=== PATIENT | male | born 1970 | race African-American/Black ===

== ENCOUNTER 2017-05-19 19:24 | Emergency (ER) | payer MEDICARE, OTHER ==
[2017-05-19 20:04] VITALS: BP 146/95; PULSE 65; RESP 18; TEMP 98
--- NOTE | 2017-05-19 20:29 | XR ---
EXAMINATION TYPE: XR hand complete LT DATE OF EXAM: 05/19/2017 COMPARISON: NONE HISTORY: Pain TECHNIQUE: 3 views FINDINGS: I see no fracture nor dislocation. Metacarpals are intact. There are no erosions. IMPRESSION: Negative left hand exam.
--- NOTE | 2017-05-19 21:01 | ED ---
General Adult HPI - General Chief complaint: Extremity Injury, Upper Stated complaint: left hand swelling Time Seen by Provider: 05/19/17 20:52 Source: patient, RN notes reviewed Mode of arrival: ambulatory Limitations: no limitations - History of Present Illness Initial comments: 47-year-old male presents to the emergency department with a chief complaint of left hand pain. Patient was boxing and continues to have pain to the left hand. He states that he was wearing gloves. He states that there was no other injury. He states it hurts at the knuckle of the third and fourth finger. There is been no other symptoms at this time. He otherwise is feeling well. Patient denies any recent fever, chills, shortness of breath, chest pain, back pain, abdominal pain, nausea vomiting, numbness or tingling, dysuria or hematuria, constipation or diarrhea, headaches or visual changes, or any other current symptoms. - Related Data Allergies Allergy/AdvReac Type Severity Reaction Status Date / Time No Known Allergies Allergy Verified 05/19/17 20:04 Review of Systems ROS Statement: Those systems with pertinent positive or pertinent negative responses have been documented in the HPI. ROS Other: All systems not noted in ROS Statement are negative. Past Medical History Past Medical History: Hypertension History of Any Multi-Drug Resistant Organisms: None Reported Past Surgical History: Cholecystectomy Past Psychological History: No Psychological Hx Reported Smoking Status: Current every day smoker Past Alcohol Use History: None Reported Past Drug Use History: Marijuana General Exam - General Exam Comments Initial Comments: General: The patient is awake and alert, in no distress, and does not appear acutely ill. Neck: The neck is supple, there is no tenderness. Cardiovascular: There is a regular rate and rhythm. No murmur, rub or gallop is appreciated. Respiratory: Lungs are clear to auscultation, respirations are non-labored, breath sounds are equal. No wheezes, stridor, rales, or rhonchi. Musculoskeletal: Sensation intact with 2+ pulses throughout the left upper extremity. Patient has some tenderness patient along the third and fourth knuckle. No deformity no weakness. Full range of motion with 5 out of 5 muscle strength testing. Neurological: CN II-XII intact, There are no obvious motor or sensory deficits. Coordination appears grossly intact. Speech is normal. Skin: Skin is warm and dry and no rashes or lesions are noted. Psychiatric: Normal mood and affect. Limitations: no limitations Course Vital Signs 05/19/17 20:01 Temperature 98.0 F Pulse Rate 65 Respiratory 18 Rate Blood Pressure 146/95 O2 Sat by Pulse 100 Oximetry Medical Decision Making - Medical Decision Making 47-year-old male presents to the emergency department with a chief complaint of left hand contusion. X-rays are reviewed and negative. We did discuss Motrin Tylenol for pain we discussed ice. He was offered bee sting. He states he can do them at home. We discussed return for hours all questions. Patient family stated they understood and management this plan. They will be discharged. - Radiology Data Radiology results: report reviewed, image reviewed Disposition Clinical Impression: Contusion of left hand Disposition: HOME SELF-CARE Condition: Stable Instructions: Contusion in Adults (ED) Additional Instructions: Please use medication as discussed. Please follow up with family doctor if symptoms have not improved over the next two days. Please return to the emergency room if your symptoms increase or worsen or for any other concerns. Referrals: Reji Najera MD [REFERRING] - 1-2 days Time of Disposition: 21:01
== END 2017-05-19 21:08 | disposition home or self-care (01) ==
LOC: EC 19:24
DX: S60.222A Contusion of left hand, initial encounter (principal); F17.200 Nicotine dependence, unspecified, uncomplicated; X58.XXXA Exposure to other specified factors, initial encounter; Y93.71 Activity, boxing
CPT/HCPCS: 99283

== ENCOUNTER 2018-10-12 10:28 | Emergency (ER) | payer MEDICARE, OTHER ==
[2018-10-12 10:33] VITALS: BP 175/105; PULSE 78; RESP 18; TEMP 98.4
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
--- NOTE | 2018-10-12 11:22 | XR ---
EXAM TYPE: LUMBAR SPINE X RAY SERIES COMPARISON: NONE HISTORY: Low back pain TECHNIQUE: 4 views are submitted. FINDINGS: Alignment is anatomic. The pedicles are intact. The transverse processes are intact. There is no s pondylolysis or spondylolisthesis. Surgical clips in the right upper quadrant. Multilevel hypertroph ic changes are seen. IMPRESSION: 1. Multilevel hypertrophic changes consider follow-up MRI..
[2018-10-12] MEDS ORDERED: ACET/COD 300 MG/30 MG STARTER PACK 6 TAB BTL PO STA (12:15)
== END 2018-10-12 12:24 | disposition home or self-care (01) ==
LOC: EC 10:28
DX: M54.5 Low back pain (principal); I10 Essential (primary) hypertension; F17.200 Nicotine dependence, unspecified, uncomplicated; Z79.899 Other long term (current) drug therapy
CPT/HCPCS: 72110; 99283

== ENCOUNTER → 2022-01-16 | Outpatient (CLI) | payer MEDICARE, OTHER ==
--- NOTE | 2022-01-17 07:42 | US ---
EXAMINATION TYPE: US kidneys/renal and bladder DATE OF EXAM: 01/16/2022 COMPARISON: NONE CLINICAL HISTORY: N18.5 CHRONIC RENAL DISEASE. EXAM MEASUREMENTS: Right Kidney: 9.2 x 4.4 x 4.4 cm Left Kidney: 9.1 x 4.5 x 5.1 cm Patient of large body habitus Right Kidney: echogenic kidney without any mass or hydronephrosis visualized Left Kidney: No hydronephrosis, superior pole cyst measuring 1.2 x 1.1 x 1.0cm Bladder: not fully distended IMPRESSION: 1. Left renal cyst
== END | disposition home or self-care (01) ==
LOC: RADUSWWP 16:27
PROVIDERS: ATTEND Internal Medicine Nephrology
DX: N28.1 Cyst of kidney, acquired (principal); N18.5 Chronic kidney disease, stage 5
CPT/HCPCS: 76770

== ENCOUNTER 2024-03-30 15:46 | Inpatient (IN) | payer MEDICARE, OTHER ==
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
[2024-03-30 17:56] LABS: INR 0.9 (<1.2); Partial Thromboplastin Time 23.1 sec (22.0-30.0)
[2024-03-30 17:57] LABS: Anisocytosis Slight; Basophils % (A) 0 %; Eosinophils # (A) 0.1 k/uL (0-0.7); Eosinophils % (A) 1 %; HGB 11.9 gm/dL (13.0-17.5); Hypochromasia Slight; Lymphocytes # (A) 0.8 k/uL (1.0-4.8); Lymphocytes % (A) 8 %; MCH 29.4 pg (25.0-35.0); MCHC 32.1 g/dL (31.0-37.0); MCV 91.7 fL (80.0-100.0); Mean Platelet Volume 7.7; Monocytes # (A) 0.5 k/uL (0-1.0); Monocytes % (A) 5 %; Neutrophils # (A) 8.5 k/uL (1.3-7.7); Neutrophils % (A) 84 %; Platelet Count 151 k/uL (150-450); RBC 4.03 m/uL (4.30-5.90); RDW 16.1 % (11.5-15.5); WBC 10.1 k/uL (3.8-10.6)
[2024-03-30 18:04] LABS: ALT 11 U/L (4-49); AST 21 U/L (17-59); African American GFR (CKD) 9 (>60 ml/min/1.73 sqM); Alkaline Phosphatase 127 U/L (38-126); Anion Gap 19 mmol/L; Blood Urea Nitrogen 48 mg/dL (9-20); Calcium 9.4 mg/dL (8.4-10.2); Carbon Dioxide 12 mmol/L (22-30); Chloride 108 mmol/L (98-107); Glucose 87 mg/dL (74-99); Non-African American GFR(CKD) 8 (>60 ml/min/1.73 sqM); Potassium 4.4 mmol/L (3.5-5.1); Sodium 139 mmol/L (137-145); Total Protein 7.9 g/dL (6.3-8.2)
--- NOTE | 2024-03-30 18:04 | XR ---
EXAMINATION TYPE: XR chest 2V DATE OF EXAM: 03/30/2024 5:50 PM COMPARISON: None CLINICAL INDICATION: Male, 53 years old with history of dizziness; TECHNIQUE: XR chest 2V Frontal and lateral views of the chest. FINDINGS: Lungs/Pleura: There is no evidence of pleural effusion, focal consolidation, or pneumothorax. Pulmonary vascularity: Unremarkable. Heart/mediastinum: Cardiomediastinal silhouette is unremarkable. Musculoskeletal: No acute osseous pathology. IMPRESSION: No acute cardiopulmonary disease/process. [facility], , 03/30/2024 6:02 PM
--- NOTE | 2024-03-30 18:18 | CT ---
EXAMINATION TYPE: CT brain wo con DATE OF EXAM: 03/30/2024 6:01 PM COMPARISON: None. CLINICAL INDICATION: Male, 53 years old with history of headache/dizzy/hypertensive, Headache/dizzy/h ypertensive. TECHNIQUE: Brain: Axial CT images of the brain were obtained with coronal and sagittal reformats created and rev iewed. Contrast used: None. Oral contrast used: None. CT DLP: 1154.4 mGycm, Automated exposure control for dose reduction was used. FINDINGS: Brain: Extra-axial spaces: No abnormal extra-axial fluid collections. Ventricular system: Within normal limits Cerebral parenchyma: No acute intraparenchymal hemorrhage or mass effect. The garza-white junction is well differentiated. Cerebellum: Unremarkable. Mass effect: No evidence of midline shift. Intracranial vasculature: unremarkable Soft tissues: Normal. Calvarium/osseous structures: No depressed skull fracture. Paranasal sinuses and mastoid air cells: Moderate paranasal sinus disease of because of thickening/re tention cyst. Visualized orbits: Orbital contents are intact. IMPRESSION: No acute intracranial process. [facility], , 03/30/2024 6:15 PM
[2024-03-30] MEDS: LABETALOL 5 MG/ML VIAL MDV IVP STA (18:46)
[2024-03-30] MEDS: cloNIDine 0.1 MG/24HR PATCH TRANSDERM SCH (18:56)
[2024-03-30] MEDS ORDERED: NALOXONE 0.4 MG/ML 1 ML VIAL IV PRN (19:08)
[2024-03-30] MEDS ORDERED: ONDANSETRON 4 MG/2 ML VIAL IVP PRN (19:08)
[2024-03-30] MEDS: SODIUM CHLORIDE 0.9% 1,000 ML IV SCH (20:28)
--- NOTE | 2024-03-30 21:38 | P.HPIM ---
History of Present Illness H&P Date: 03/30/24 Patient is a 53-year-old male with history of uncontrolled hypertension and chronic kidney disease comes to the ER with complaint of dizziness and headaches since 4 to 5 days. Patient states that he has been feeling dizzy constantly since Friday which is worse with changes in position. It has been associated with unsteady gait and had to 2 episodes fall. He denies any injury to the head. Denies any loss of consciousness. Patient has been also experiencing diffuse headache which is worse in the occipital area associated with blurry vision. Patient states that when he measured his blood pressure at home today his BP was more than approximately 230/150 which prompted him to come to the ER for further evaluation. Patient has previously been diagnosed with hypertension and was on 5-7 different types of antihypertensive medications. He has not been taking hypertensive medications for the past 1 year because he "did not feel the need to take it". Patient is also following a sustainability officer at [facility] in [facility] for chronic kidney disease and according to the p atient he was supposed to be having a peritoneal dialysis. Patient is unable to recall the name of the sustainability officer. Patient denies history of CAD and CVA. Patient is not on any blood thinner. No recent travel. Patient denies shortness of breath, chest pain, abdominal pain, numbness or weakness or tingling in upper and lower extremities. Laboratory data: WBC 10.1, hemoglobin 11.9, hematocrit 37.0, platelet count 151, PT 10.0, INR 0.9, APTT 23.1, sodium 139, potassium 4.4, chloride 108, bicarb 12, BUN 48, creatinine 7.31, EGFR 9, AST 21, ALT 11, ALP 127, troponin I 0.038 Images: Chest x-ray interpreted independently shows no acute cardiopulmonary process Brain CT shows no acute intraparenchymal hemorrhage or mass effect. No acute intracranial process EKG intracranial bleed shows Vitals: BP 236/149 with MAP at 178, Tmax 98.4 Fahrenheit, heart rate 83, oxygen saturation 98% on room air Review of systems: Pertinent positives and negatives as discussed in HPI, a complete review of systems was performed and all other systems are negative. Social history: Tobacco: Half a cigarette every day Alcohol: None Recreational drugs: Denies use of recreational Family History: Hypertension and mother and father Physical examination: Vital signs reviewed General: non toxic, no distress, appears at stated age, overweight Derm: no unusual rashes/lesions, warm, tattoos in the face and upper and lower extremities Head: atraumatic, normocephalic, symmetric, no carotid bruit Eyes: EOMI, anicteric sclera, pupils equal round reactive to light ENT: Nose and ears atraumatic Neck: No cervical lymphadenopathy, trachea midline, supple Mouth: no lip lesion, mucus membranes moist Cardiovascular: S1S2 reg, no murmur, positive dorsalis pedis pulse bilateral, no edema, peripheral radial pulses are brisk and equal Lungs: CTA bilateral, no rhonchi, no rales, no accessory muscle use Abdominal: soft, nontender to palpation, no guarding Ext: muscle strength 5 out of 5 in all 4 extremities grossly, no gross muscle atrophy, no contractures, Neuro: CN II-XI grossly intact, no gross focal neuro deficits, pronator drift negative Psych: Alert, oriented, appropriate affect Assessment/Plan: Patient is a 53-year-old male with uncontrolled hypertension not currently on medication for over a year now and chronic kidney disease non oliguric comes to the ER with complaint of hypertension crisis, dizziness and headaches since 4 to 5 days. Case was discussed with the Emergency Room provider and decision was made to admit the patient for hypertensive emergency #Hypertensive emergency #Suspected posterior reversible encephalopathy syndrome Blood pressure 236/149 with a MAP of 178 Patient has been experiencing dizziness and headache mostly on the occipital area associated with blurry vision Troponin I 0.038 elevated , continue to trend , denies chest pain Patient has received clonidine 0.1 mg/24-hour patch as well as labetalol 20 mg IVP once in ED Blood pressure continues to be in the range of hypertensive emergency Initiate transfer to ICU Order nicardipine drip starting at 5 mg/h Continue with drip titration as needed with a goal of lowering the MAP by 25% in the first hour which is apprx 135 , then Target BP around or slightly below 180/120 which should be maintained till morning over the next 12 hours Continue with cardiac telemetry Consider MRI of the brain to rule out posterior reversible encephalopathy syndrome # GOLD on CKD , unknown baseline , non oliguric Patient is already established sustainability officer at [facility] in [place] elevated renal function BUN 48, creatinine 7.31, EGFR 9 Consult nephrology monitor urine output closely #Type II [place] secondary to hypertensive emergency and CKD Continue to trend troponin, although patient is not complaining of any chest pain and low suspicious for ACS Continue with cardiac telemetry Consult cardiology #Normocytic anemia Hemoglobin 11.9, MCV 91.7 Continue monitor CBC #High anion gap metabolic acidosis secondary to renal failure Order lactic acid Sodium 139, potassium 4.4, chloride 108, bicarb 12, anion gap 19, #Elevated ALP ALP 127 Continue monitor CMP DVT prophylaxis: None indicated based on low Gomez Prediction Score for Risk of VTE , SCDs, will avoid chemical DVT PPX overnight due to uncontrolled hypertension , consider initiating chemical DVT PPX once his BP under control GI prophylaxis: IV Protonix 40 mg daily F: IV normal saline at 75 cc per hour E: Replete as needed N: Heart healthy diet A: Patient ambulatory at baseline The patient is admitted with an anticipated more than than 2 midnight stay for evaluation of hypertensive emergency CODE STATUS: Full code Discussed with: Patient Anticipated discharge place: Pending clinical course Dictation was produced using [employer] dictation software. Please excuse any grammatical, word or spelling errors. I have seen and evaluated the patient today. I Discussed the case with the resident and agree with the resident's findings I edited the assessment and plan as necessary as documented in the resident's note. Past Medical History Past Medical History: Hypertension History of Any Multi-Drug Resistant Organisms: None Reported Past Surgical History: Cholecystectomy Past Psychological History: No Psychological Hx Reported Smoking Status: Current every day smoker Past Alcohol Use History: None Reported Past Drug Use History: Marijuana Medications and Allergies Home Medications Medication Instructions Recorded Confirmed Type No Known Home Medications 03/30/24 03/30/24 History Allergies Allergy/AdvReac Type Severity Reaction Status Date / Time No Known Allergies Allergy Verified 03/30/24 18:41 Physical Exam Vitals: Vital Signs Temp Pulse Resp BP Pulse Ox 03/30/24 21:00 72 18 204/137 100 03/30/24 20:28 83 18 236/149 98 03/30/24 18:44 93 18 233/151 97 03/30/24 16:25 98.4 F 97 18 236/147 99 Intake and Output 03/30/24 03/30/24 03/30/24 06:59 14:59 22:59 Other: Weight 93.44 kg Results CBC & Chem 7: 03/30/24 17:38 03/30/24 17:38 Labs: Abnormal Lab Results - Last 24 Hours (Table) 03/30/24 03/30/24 03/30/24 Range/Units 17:38 17:38 17:38 RBC 4.03 L (4.30-5.90) m/uL Hgb 11.9 L (13.0-17.5) gm/dL Hct 37.0 L (39.0-53.0) % RDW 16.1 H (11.5-15.5) % Neutrophils # 8.5 H (1.3-7.7) k/uL Lymphocytes # 0.8 L (1.0-4.8) k/uL Chloride 108 H (98-107) mmol/L Carbon Dioxide 12 L (22-30) mmol/L BUN 48 H (9-20) mg/dL Creatinine 7.31 H* (0.66-1.25) mg/dL Alkaline Phosphatase 127 H (38-126) U/L Troponin I 0.038 H* (0.000-0.034) ng/mL
[2024-03-30] MEDS: niCARdipine 20 MG in SODIUM CHLORIDE 0.9% 192 ML IV SCH (21:40)
[2024-03-30 22:07] LABS: Glucose,Whole Blood 157 mg/dL (70-110)
[2024-03-30] MEDS: CLEVIDIPINE BUTYRATE 25 MG in EMPTY BAG 1 BAG IV SCH (23:48)
[2024-03-30] MEDS: MORPHINE SULFATE 4 MG/ML SYRINGE IV PRN (23:49)
[2024-03-31 00:45] LABS: Anisocytosis Slight; Basophils % (A) 0 %; Eosinophils # (A) 0.1 k/uL (0-0.7); Eosinophils % (A) 1 %; HGB 11.2 gm/dL (13.0-17.5); Hypochromasia Slight; Lymphocytes # (A) 0.9 k/uL (1.0-4.8); Lymphocytes % (A) 8 %; MCH 29.4 pg (25.0-35.0); MCV 92.1 fL (80.0-100.0); Mean Platelet Volume 7.7; Monocytes # (A) 0.6 k/uL (0-1.0); Monocytes % (A) 6 %; Neutrophils # (A) 8.8 k/uL (1.3-7.7); Neutrophils % (A) 84 %; Platelet Count 147 k/uL (150-450); RDW 16.3 % (11.5-15.5); WBC 10.5 k/uL (3.8-10.6)
[2024-03-31 01:07] LABS: ALT 11 U/L (4-49); AST 18 U/L (17-59); African American GFR (CKD) 9 (>60 ml/min/1.73 sqM); Albumin 4.6 g/dL (3.5-5.0); Alkaline Phosphatase 116 U/L (38-126); Anion Gap 14 mmol/L; Blood Urea Nitrogen 48 mg/dL (9-20); Carbon Dioxide 17 mmol/L (22-30); Chloride 105 mmol/L (98-107); Glucose 160 mg/dL (74-99); Magnesium 2.1 mg/dL (1.6-2.3); Non-African American GFR(CKD) 7 (>60 ml/min/1.73 sqM); Phosphorus 3.5 mg/dL (2.5-4.5); Potassium 3.4 mmol/L (3.5-5.1); Sodium 136 mmol/L (137-145); Total Bilirubin 0.7 mg/dL (0.2-1.3); Total Protein 7.4 g/dL (6.3-8.2)
[2024-03-31] MEDS: LABETALOL 5 MG/ML VIAL MDV IVP STA (02:21)
--- NOTE | 2024-03-31 04:04 | P.CNPUL ---
History of Present Illness Consult date: 03/31/24 Requesting physician: Tomasz Orosco Reason for consult: other (Hypertensive emergency) Chief complaint: Headaches, vision changes History of present illness: Patient is a 53-year-old -Cambod[place] male with past medical history significant for hypertension and renal disease. Patient is originally from [place]. History remarkable for high blood pressure, was previously on multiple blood pressure medications, but has not taken anything in the last year. He states he does have a primary care to provider and emergency preparedness manager but was unable to recall their names. Presents emergency department yesterday afternoon with a chief complaint of severe diffuse headache, diffuse and nonlocalized, dizziness, and blurred vision. Symptoms have persisted over the last week. He was noted to be severely hypertensive in the emergency department with a blood pressure of 220 over 123 mmHg. On the emergency room, given labetalol 20 mg IV push once, clonidine patch, and then started on a Cardene infusion. Initial lab work concerning for renal failure. Patient states that he does have a kidney doctor. He was going to be started on peritoneal dialysis, but never followed up. CBC: WBC count 10.5, hemoglobin 11.2, hematocrit 35, platelets 147. CMP: Sodium 136, potassium 3.4, chloride 105, serum bicarb 17, anion gap 14, BUN 48, creatinine 7.59, glucose 160. LFTs unremarkable. Magnesium 2.1. Serial troponins elevated at 0.038, 0.038, and 0.046 in the setting of renal failure and severe hypertension. Patient is currently being evaluated in the intensive care unit. Cardene is currently infusing at 5 mg/h. He remains hypertensive with a current blood pressure of 192/113 mmHg. He is lying in bed, appears comfortable. He denies any chest pain, shortness of breath, orthopnea, palpitations, lower extremity edema. Chest x-ray does not show any acute cardiopulmonary process. Continues to have headache, but slightly improved. No mental status changes. Brain CT without contrast does not show any acute intracranial process. Denies recreational drug use other than marijuana. He states that he is leaving in the morning. Review of Systems Constitutional: Denies chills, Denies chronic headaches, Denies fever, Denies weight gain, Denies weight loss Ears, nose, mouth and throat: Reports headache, Denies sinus pain, Denies sinus pressure Cardiovascular: Reports as per HPI Respiratory: Denies cough, Denies dyspnea, Denies pain, Denies sleep apnea Gastrointestinal: Denies abdominal pain, Denies diarrhea, Denies nausea, Denies vomiting Genitourinary: Denies dysuria, Denies hematuria Musculoskeletal: Denies arm numbness/tingling, Denies leg numbness/tingling Integumentary: Denies rash Neurological: Reports headaches, Reports lack of coordination, Reports visual changes, Denies change in speech, Denies confusion, Denies double vision, Denies head injury, Denies hearing difficulties, Denies loss of vision, Denies motor disturbance, Denies numbness, Denies paralysis, Denies paresthesias, Denies seizures, Denies syncope, Denies tingling, Denies weakness Psychiatric: Denies anxiety, Denies depression Past Medical History Past Medical History: Hypertension History of Any Multi-Drug Resistant Organisms: None Reported Past Surgical History: Cholecystectomy Past Psychological History: No Psychological Hx Reported Smoking Status: Current every day smoker Past Alcohol Use History: None Reported Past Drug Use History: Marijuana Medications and Allergies Home Medications Medication Instructions Recorded Confirmed Type No Known Home Medications 03/30/24 03/30/24 History Allergies Allergy/AdvReac Type Severity Reaction Status Date / Time No Known Allergies Allergy Verified 03/30/24 18:41 Physical Exam Vitals: Vital Signs Temp Pulse Resp BP Pulse Ox 03/31/24 03:00 86 12 149/102 98 03/31/24 02:55 93 15 156/99 97 03/31/24 02:50 86 12 143/103 95 03/31/24 02:45 85 12 136/89 99 03/31/24 02:40 87 22 142/90 94 L 03/31/24 02:35 85 12 154/102 94 L 03/31/24 02:30 100 12 189/114 95 03/31/24 02:25 128 H 12 178/109 96 03/31/24 02:20 115 H 14 175/113 97 03/31/24 02:15 111 H 12 192/113 96 03/31/24 02:10 107 H 12 192/113 97 03/31/24 02:05 113 H 12 203/143 96 03/31/24 02:00 135 H 13 185/116 97 03/31/24 01:55 114 H 22 169/111 97 03/31/24 01:50 110 H 12 197/110 98 03/31/24 01:45 115 H 18 194/123 98 03/31/24 01:40 120 H 18 182/108 98 03/31/24 01:35 121 H 14 206/119 98 03/31/24 01:30 116 H 15 189/107 99 03/31/24 01:25 98 12 176/101 99 03/31/24 01:20 105 H 12 187/112 98 03/31/24 01:15 108 H 18 185/122 99 03/31/24 01:10 101 H 12 203/121 98 03/31/24 01:05 98 12 194/114 98 03/31/24 01:00 110 H 12 212/118 97 03/31/24 00:55 104 H 12 188/111 97 03/31/24 00:50 96 12 209/120 98 03/31/24 00:45 96 12 195/115 97 03/31/24 00:40 101 H 12 204/114 98 03/31/24 00:35 99 12 185/120 98 03/31/24 00:30 95 12 192/117 98 03/31/24 00:25 102 H 12 192/117 99 03/31/24 00:20 99 13 184/114 98 03/31/24 00:15 104 H 12 192/125 99 03/31/24 00:10 104 H 22 218/115 97 03/31/24 00:05 112 H 12 220/123 98 03/31/24 00:00 98.4 F 105 H 12 192/137 97 03/30/24 23:55 115 H 12 200/117 98 03/30/24 23:50 112 H 12 189/119 98 03/30/24 23:45 121 H 19 223/131 97 03/30/24 23:40 118 H 20 223/131 03/30/24 23:35 128 H 18 219/149 98 03/30/24 23:30 124 H 18 196/122 98 03/30/24 23:25 125 H 12 210/114 97 03/30/24 23:20 121 H 13 197/120 98 03/30/24 23:15 113 H 14 181/114 98 03/30/24 23:10 110 H 12 164/128 97 03/30/24 23:05 100 12 184/144 99 03/30/24 23:00 98 16 188/114 98 03/30/24 22:59 93 12 188/114 98 03/30/24 22:55 95 12 194/119 100 03/30/24 22:50 98 12 183/118 99 03/30/24 22:45 96 12 189/114 97 03/30/24 22:40 90 8 L 182/138 99 03/30/24 22:30 93 22 185/124 98 03/30/24 22:20 87 26 H 248/155 98 03/30/24 22:16 231/146 98 03/30/24 22:00 74 18 222/139 98 03/30/24 21:50 75 17 222/139 98 03/30/24 21:40 72 14 248/147 99 03/30/24 21:39 70 18 248/147 98 03/30/24 21:30 78 13 216/137 99 03/30/24 21:20 71 25 H 216/137 98 03/30/24 21:16 97.8 F 18 03/30/24 21:10 98.5 F 76 22 204/137 99 03/30/24 21:00 72 18 204/137 100 03/30/24 20:28 83 18 236/149 98 03/30/24 18:44 93 18 233/151 97 03/30/24 16:25 98.4 F 97 18 236/147 99 Intake and Output 03/30/24 03/30/24 03/31/24 14:59 22:59 06:59 Intake Total 57.083 929.251 Output Total 200 Balance 57.083 729.251 Intake: IV 75 Sodium Chloride 0.9% 1, 75 000 ml @ 75 mls/hr IV . [id number] YOUNG Rx#:[id number] Intake, IV Titration 57.083 214.251 Amount Clevidipine Butyrate 25 71.334 mg In Empty Bag 1 bag @ 1 MG/HR 2 mls/hr IV .Q24H YOUNG Rx#:[id number] niCARdipine 20 mg In 57.083 142.917 Sodium Chloride 0.9% 192 ml @ 5 MG/HR 50 mls/hr IV .Q4H YOUNG Rx#:[id number] Oral 400 Tube Feeding 240 Output: Urine 200 Other: Weight 93.44 kg GENERAL EXAM: Alert, 53-year-old -[place] male, resting comfortably in bed. HEAD: Normocephalic and atraumatic EYES: Normal reaction of pupils, equal size. NOSE: Clear with pink turbinates. THROAT: No erythema or exudates. NECK: No masses, no JVD. CHEST: No chest wall deformity. LUNGS: Equal air entry with no crackles, wheeze, rhonchi or dullness. On room air. No conversational dyspnea or accessory muscle use.. CVS: S1 and S2 normal with no audible murmur, regular rhythm. No extra heart sounds ABDOMEN: No hepatosplenomegaly, active bowel sounds, no guarding or rigidity. SPINE: No scoliosis or deformity SKIN: No rashes CENTRAL NERVOUS SYSTEM: No focal deficits, tone is normal in all 4 extremities. EXTREMITIES: There is no peripheral edema, clubbing, or cyanosis. Peripheral pulses are intact. Results - Laboratory Findings CBC and BMP: 03/31/24 00:29 03/31/24 00:29 PT/INR, D-dimer PT 10.0 sec (10.0-12.5) 03/30/24 17:38 INR 0.9 (<1.2) 03/30/24 17:38 Abnormal lab findings: Abnormal Labs 03/30/24 03/30/24 03/30/24 17:38 17:38 17:38 RBC 4.03 L Hgb 11.9 L Hct 37.0 L RDW 16.1 H Plt Count Neutrophils # 8.5 H Lymphocytes # 0.8 L Sodium Potassium Chloride 108 H Carbon Dioxide 12 L BUN 48 H Creatinine 7.31 H* Glucose POC Glucose (mg/dL) Alkaline Phosphatase 127 H Troponin I 0.038 H* 03/30/24 03/30/24 03/31/24 20:35 22:05 00:23 RBC Hgb Hct RDW Plt Count Neutrophils # Lymphocytes # Sodium Potassium Chloride Carbon Dioxide BUN Creatinine Glucose POC Glucose (mg/dL) 157 H Alkaline Phosphatase Troponin I 0.038 H* 0.046 H* 03/31/24 03/31/24 00:29 00:29 RBC 3.80 L Hgb 11.2 L Hct 35.0 L RDW 16.3 H Plt Count 147 L Neutrophils # 8.8 H Lymphocytes # 0.9 L Sodium 136 L Potassium 3.4 L Chloride Carbon Dioxide 17 L BUN 48 H Creatinine 7.59 H* Glucose 160 H POC Glucose (mg/dL) Alkaline Phosphatase Troponin I - Diagnostic Findings Chest x-ray: image reviewed Assessment and Plan Assessment: Hypertensive emergency, likely secondary to medication noncompliance and renal disease Acute kidney injury on top of chronic kidney disease Anion gap metabolic acidosis Vision changes/blurred vision, improved Elevated troponins, possibly secondary to type II [place] in the setting of chronic kidney disease and hypertensive emergency Medication noncompliance Chronic marijuana use Chronic tobacco dependence, smokes 1/2 pack/day Plan: Patient's medications, labs, chest x-ray reviewed Patient currently on Cardene infusion at 5 mg/h, remains severely hypertensive, this is going to be transitioned to Cleviprex for closer blood pressure management Goal to reduce mean arterial pressure by 25% within the first hour and then SBP of 160 over the next 2 to 6 hours. Will then introduce oral antihypertensives over the next 24 to 48 hours Rule out secondary causes of hypertension: check renal artery Doppler, check urine drug screen Neurochecks ordered per protocol Brain CT unremarkable for intracranial hemorrhage Cardiology consulted for severe hypertension and elevated troponins Nephrology consulted for renal failure Patient has voiced on multiple occasions his desire to leave AGAINST MEDICAL ADVICE. Patient is educated on the seriousness of his condition and possibility of morbidity/mortality. Willing to stay for treatment at this time. We will continue to follow patient while in the intensive care unit I have personally seen and examined the patient, performed the documentation and the assessment and plan as written. Number of minutes spent on the visit:20 This dictation was produced using [employer] dictation software please excuse grammatical errors Time with Patient: Greater than 30
[2024-03-31] MEDS: FUROSEMIDE 10 MG/ML 10 ML VIAL IV STA (08:15)
[2024-03-31] MEDS: PANTOPRAZOLE 40 MG/10 ML VIAL IV SCH (08:15)
[2024-03-31] MEDS: hydrALAZINE HCL 20 MG/ML 1 ML VIAL IVP PRN (08:28)
--- NOTE | 2024-03-31 08:37 | US ---
EXAMINATION TYPE: US renal artery duplex complet DATE OF EXAM: 03/31/2024 COMPARISON: 01/16/2022 - Renal CLINICAL INDICATION: Male, 53 years old with history of hypertension; Uncontrolled HTN, headaches, an d back pain. TECHNIQUE: Grayscale, color Doppler and spectral Doppler imaging of the bilateral renal arteries and kidneys. FINDINGS: MEASUREMENTS: RENAL SIZE: Right Kidney: 8.5 x 4.2 x 4.5 cm Left Kidney: 8.9 x 4.5 x 4.2 cm Right Kidney: wnl Left Kidney: wnl Abd Aorta: No AAA visualized RESISTANCE INDEX Right: 0.78 Left: 0.80 RA/AO RATIO (< 3.5 ) Right: 0.08 Left: 0.09 RENAL ARTERY VELOCITY ( < 180 cm/s) Right: 18 Left: 22 [employer] D[employer] Tender Notes: Difficult exam due to overlying bowel gas Appropriate color Doppler flow and spectral waveforms to the kidneys bilaterally. IMPRESSION: No evidence for renal artery stenosis bilaterally. [facility], , 03/31/2024 8:34 AM
--- NOTE | 2024-03-31 11:20 | P.PN ---
Subjective Progress Note Date: 03/31/24 Patient is a 53-year-old male with history of uncontrolled hypertension and chronic kidney disease comes to the ER with complaint of dizziness and headaches since 4 to 5 days. Patient states that he has been feeling dizzy constantly since Friday which is worse with changes in position. It has been associated with unsteady gait and had to 2 episodes fall. He denies any injury to the head. Denies any loss of consciousness. Patient has been also experiencing diffuse headache which is worse in the occipital area associated with blurry vision. Patient states that when he measured his blood pressure at home today his BP was more than approximately 230/150 which prompted him to come to the ER for further evaluation. Patient has previously been diagnosed with hypertension and was on 5-7 different types of antihypertensive medications. He has not been taking hypertensive medications for the past 1 year because he "did not feel the need to take it". Patient is also following a sandfill operator surface at [facility] in [facility] for chronic kidney disease and according to the patient he was supposed to be having a peritoneal dialysis. Patient is unable to recall the name of the sandfill operator surface. Patient denies history of CAD and CVA. Patient is not on any blood thinner. No recent travel. Patient denies shortness of breath, chest pain, abdominal pain, numbness or weakness or tingling in upper and lower extremities. Laboratory data: BUN 48, creatinine 7.59, troponin 0.038, 0.038, 0.046, potassium 3.4, Images: Chest x-ray interpreted independently shows no acute cardiopulmonary process Brain CT shows no acute intraparenchymal hemorrhage or mass effect. No acute intracranial process EKG intracranial bleed shows Vitals: BP 236/149 with MAP at 178, Tmax 98.4 Fahrenheit, heart rate 83, oxygen saturation 98% on room air Subjective: 03/31/2024: Patient seen evaluated bedside. He states he did not sleep well. Patient reports of headache located on his forehead. Denies any dizziness. Physical examination: Vital signs reviewed General: non toxic, no distress, appears at stated age, overweight Derm: no unusual rashes/lesions, warm, tattoos in the face and upper and lower extremities Head: atraumatic, normocephalic, symmetric, no carotid bruit Eyes: EOMI, anicteric sclera, pupils equal round reactive to light ENT: Nose and ears atraumatic Neck: No cervical lymphadenopathy, trachea midline, supple Mouth: no lip lesion, mucus membranes moist Cardiovascular: S1S2 reg, no murmur, positive dorsalis pedis pulse bilateral, no edema, peripheral radial pulses are brisk and equal Lungs: CTA bilateral, no rhonchi, no rales, no accessory muscle use Abdominal: soft, nontender to palpation, no guarding Ext: muscle strength 5 out of 5 in all 4 extremities grossly, no gross muscle atrophy, no contractures, Neuro: CN II-XI grossly intact, no gross focal neuro deficits, pronator drift negative Psych: Alert, oriented, appropriate affect Data Received Today: Pertinent Labs: Troponin 0.038, 0.038, 0.046 BUN 48, creatinine 7.59, hemoglobin 11 point Imaging: Renal ultrasound showing signs of stenosis Assessment/Plan: Patient is a 53-year-old male with uncontrolled hypertension not currently on medication for over a year now and chronic kidney disease non oliguric comes to the ER with complaint of hypertension crisis, dizziness and headaches. # Hypertensive emergency # posterior reversible encephalopathy syndrome, less likely Cleviprex 25mg IV 1mg/hr Clonidine 0.1 mg/24-hour patch removed Continue with drip titration, will plan to switch to oral medications cardiac telemetry Consider MRI of the brain to rule out posterior reversible encephalopathy syndrome renal u/s showing no stenosis # ESRD # High anion gap metabolic acidosis secondary to renal failure Patient is already established sandfill operator surface at [facility] in [place] Patient noncompliant with peritoneal dialysis elevated renal function BUN 48, creatinine 7.59, EGFR 9 monitor urine output closely Discussed with nephrology, also added carvedilol 12.5 twice daily, and nifedipine 60 daily # Type II STEMI, secondary to hypertensive emergency and CKD Troponin 0.038, 0.038, 0.046 Denies chest pain Continue with cardiac telemetry Cardiology consulted # Normocytic anemia Hemoglobin 11.9, MCV 91.7 Continue monitor CBC DVT prophylaxis: Heparin SQ GI prophylaxis: IV Protonix 40 mg daily F: N/A E: Replete as needed N: Heart healthy diet A: Patient ambulatory at baseline I have seen and evaluated the patient today. Discussed with the resident and agree with the residents finding and plan as documented in the resident's note. Changes highlighted in blue font. Objective - Vital Signs Vital signs: Vital Signs Temp 98.4 F 03/31/24 04:00 Pulse 89 03/31/24 06:30 Resp 12 03/31/24 06:30 BP 161/96 03/31/24 06:30 Pulse Ox 96 03/31/24 06:30 FiO2 Intake & Output 03/30/24 03/31/24 03/31/24 18:59 06:59 18:59 Intake Total 1129.034 42 Output Total 200 Balance 929.034 42 Weight 93.44 kg 100.3 kg Intake: IV 75 Sodium Chloride 0.9% 1, 75 000 ml @ 75 mls/hr IV . [id number] YOUNG Rx#:[id number] Intake, IV Titration 414.034 42 Amount Clevidipine Butyrate 25 214.034 42 mg In Empty Bag 1 bag @ 1 MG/HR 2 mls/hr IV .Q24H [facility] Rx#:[id number] niCARdipine 20 mg In 200.000 Sodium Chloride 0.9% 192 ml @ 5 MG/HR 50 mls/hr IV .Q4H [facility] Rx#:[id number] Oral 400 Tube Feeding 240 Output: Urine 200 - Labs CBC & Chem 7: 03/31/24 00:29 03/31/24 00:29 Labs: Abnormal Lab Results - Last 24 Hours (Table) 03/30/24 03/30/24 03/30/24 Range/Units 17:38 17:38 17:38 RBC 4.03 L (4.30-5.90) m/uL Hgb 11.9 L (13.0-17.5) gm/dL Hct 37.0 L (39.0-53.0) % RDW 16.1 H (11.5-15.5) % Plt Count (150-450) k/uL Neutrophils # 8.5 H (1.3-7.7) k/uL Lymphocytes # 0.8 L (1.0-4.8) k/uL Sodium (137-145) mmol/L Potassium (3.5-5.1) mmol/L Chloride 108 H (98-107) mmol/L Carbon Dioxide 12 L (22-30) mmol/L BUN 48 H (9-20) mg/dL Creatinine 7.31 H* (0.66-1.25) mg/dL Glucose (74-99) mg/dL POC Glucose (mg/dL) (70-110) mg/dL Alkaline Phosphatase 127 H (38-126) U/L Troponin I 0.038 H* (0.000-0.034) ng/mL 03/30/24 03/30/24 03/31/24 Range/Units 20:35 22:05 00:23 RBC (4.30-5.90) m/uL Hgb (13.0-17.5) gm/dL Hct (39.0-53.0) % RDW (11.5-15.5) % Plt Count (150-450) k/uL Neutrophils # (1.3-7.7) k/uL Lymphocytes # (1.0-4.8) k/uL Sodium (137-145) mmol/L Potassium (3.5-5.1) mmol/L Chloride (98-107) mmol/L Carbon Dioxide (22-30) mmol/L BUN (9-20) mg/dL Creatinine (0.66-1.25) mg/dL Glucose (74-99) mg/dL POC Glucose (mg/dL) 157 H (70-110) mg/dL Alkaline Phosphatase (38-126) U/L Troponin I 0.038 H* 0.046 H* (0.000-0.034) ng/mL 03/31/24 03/31/24 Range/Units 00:29 00:29 RBC 3.80 L (4.30-5.90) m/uL Hgb 11.2 L (13.0-17.5) gm/dL Hct 35.0 L (39.0-53.0) % RDW 16.3 H (11.5-15.5) % Plt Count 147 L (150-450) k/uL Neutrophils # 8.8 H (1.3-7.7) k/uL Lymphocytes # 0.9 L (1.0-4.8) k/uL Sodium 136 L (137-145) mmol/L Potassium 3.4 L (3.5-5.1) mmol/L Chloride (98-107) mmol/L Carbon Dioxide 17 L (22-30) mmol/L BUN 48 H (9-20) mg/dL Creatinine 7.59 H* (0.66-1.25) mg/dL Glucose 160 H (74-99) mg/dL POC Glucose (mg/dL) (70-110) mg/dL Alkaline Phosphatase (38-126) U/L Troponin I (0.000-0.034) ng/mL
[2024-03-31] MEDS: POTASSIUM CHLORIDE ER 20 MEQ TAB.ER PO STA (11:34)
[2024-03-31] MEDS: carvediloL 12.5 MG TAB PO SCH (11:35)
[2024-03-31] MEDS: SODIUM BICARBONATE TAB 650 MG TAB PO SCH (11:35)
--- NOTE | 2024-03-31 12:40 | P.NPCON ---
History of Present Illness - Reason for Consult chronic renal failure - History of Present Illness Patient is a 53 yr old male with h/o uncontrolled hypertension CKD stage 5, seen at our office in 2021 for 1 visit. At that time cr was 4.6mg/dL. Patient was lost to follow and has seen a school traffic guard in the [place] area. Plan is for PD. Patient is admitted with h/o severe headaches and significantly elevated BP 236/151. Maintained on Cleviprex drip now. Headache has improved. No CP or SOB. Patient was not taking any of his antihypertensive medications prior to admission. Serum creatinine at 7.3mg/dL. CO2 was 12 and improved to 17 today. Patient has been voiding today after IV lasix this am. Upon discussion regarding OVERLOCK WAISTLINE JOINER, patient states that he would like to wait unless emergently needed. Over all feeling better. Past Medical History Past Medical History: Hypertension History of Any Multi-Drug Resistant Organisms: None Reported Past Surgical History: Cholecystectomy Past Psychological History: No Psychological Hx Reported Smoking Status: Current every day smoker Past Alcohol Use History: None Reported Past Drug Use History: Marijuana Medications and Allergies Home Medications Medication Instructions Recorded Confirmed Type No Known Home Medications 03/30/24 03/30/24 History Allergies Allergy/AdvReac Type Severity Reaction Status Date / Time No Known Allergies Allergy Verified 03/30/24 18:41 Physical Exam Vitals: Vital Signs Temp Pulse Resp BP Pulse Ox 03/31/24 12:00 96 22 149/102 03/31/24 11:30 92 19 165/104 03/31/24 11:00 78 14 161/84 99 03/31/24 10:30 86 12 153/67 96 03/31/24 10:00 94 13 163/87 96 03/31/24 09:30 85 12 161/89 97 03/31/24 09:00 87 17 98 03/31/24 08:45 85 12 178/105 97 03/31/24 08:30 90 12 193/106 96 03/31/24 08:15 98 10 L 130/81 98 03/31/24 08:00 98.3 F 88 14 152/82 97 03/31/24 07:45 90 14 152/80 96 03/31/24 07:30 90 19 159/84 96 03/31/24 07:15 88 18 155/83 97 03/31/24 07:00 89 24 157/92 98 03/31/24 06:45 86 3 L 148/86 96 03/31/24 06:30 89 12 161/96 96 03/31/24 06:15 89 11 L 160/99 99 03/31/24 06:00 84 18 03/31/24 05:45 92 12 164/86 03/31/24 05:30 95 12 170/79 03/31/24 05:15 89 13 167/81 96 03/31/24 05:00 86 20 158/98 96 03/31/24 04:45 84 27 H 136/78 97 03/31/24 04:30 85 14 125/77 98 03/31/24 04:15 86 12 137/77 97 03/31/24 04:00 98.4 F 85 20 140/81 97 03/31/24 03:45 81 12 142/90 97 03/31/24 03:30 79 12 149/88 95 03/31/24 03:15 86 16 132/94 96 03/31/24 03:00 86 12 149/102 98 03/31/24 02:55 93 15 156/99 97 03/31/24 02:50 86 12 143/103 95 03/31/24 02:45 85 12 136/89 99 03/31/24 02:40 87 22 142/90 94 L 03/31/24 02:35 85 12 154/102 94 L 03/31/24 02:30 100 12 189/114 95 03/31/24 02:25 128 H 12 178/109 96 03/31/24 02:20 115 H 14 175/113 97 03/31/24 02:15 111 H 12 192/113 96 03/31/24 02:10 107 H 12 192/113 97 03/31/24 02:05 113 H 12 203/143 96 03/31/24 02:00 135 H 13 185/116 97 03/31/24 01:55 114 H 22 169/111 97 03/31/24 01:50 110 H 12 197/110 98 03/31/24 01:45 115 H 18 194/123 98 03/31/24 01:40 120 H 18 182/108 98 03/31/24 01:35 121 H 14 206/119 98 03/31/24 01:30 116 H 15 189/107 99 03/31/24 01:25 98 12 176/101 99 03/31/24 01:20 105 H 12 187/112 98 03/31/24 01:15 108 H 18 185/122 99 03/31/24 01:10 101 H 12 203/121 98 03/31/24 01:05 98 12 194/114 98 03/31/24 01:00 110 H 12 212/118 97 03/31/24 00:55 104 H 12 188/111 97 03/31/24 00:50 96 12 209/120 98 03/31/24 00:45 96 12 195/115 97 03/31/24 00:40 101 H 12 204/114 98 03/31/24 00:35 99 12 185/120 98 03/31/24 00:30 95 12 192/117 98 03/31/24 00:25 102 H 12 192/117 99 03/31/24 00:20 99 13 184/114 98 03/31/24 00:15 104 H 12 192/125 99 03/31/24 00:10 104 H 22 218/115 97 03/31/24 00:05 112 H 12 220/123 98 03/31/24 00:00 98.4 F 105 H 12 192/137 97 03/30/24 23:55 115 H 12 200/117 98 03/30/24 23:50 112 H 12 189/119 98 03/30/24 23:45 121 H 19 223/131 97 03/30/24 23:40 118 H 20 223/131 03/30/24 23:35 128 H 18 219/149 98 03/30/24 23:30 124 H 18 196/122 98 03/30/24 23:25 125 H 12 210/114 97 03/30/24 23:20 121 H 13 197/120 98 03/30/24 23:15 113 H 14 181/114 98 03/30/24 23:10 110 H 12 164/128 97 03/30/24 23:05 100 12 184/144 99 03/30/24 23:00 98 16 188/114 98 03/30/24 22:59 93 12 188/114 98 03/30/24 22:55 95 12 194/119 100 03/30/24 22:50 98 12 183/118 99 03/30/24 22:45 96 12 189/114 97 03/30/24 22:40 90 8 L 182/138 99 03/30/24 22:30 93 22 185/124 98 03/30/24 22:20 87 26 H 248/155 98 03/30/24 22:16 231/146 98 03/30/24 22:00 74 18 222/139 98 03/30/24 21:50 75 17 222/139 98 03/30/24 21:40 72 14 248/147 99 03/30/24 21:39 70 18 248/147 98 03/30/24 21:30 78 13 216/137 99 03/30/24 21:20 71 25 H 216/137 98 03/30/24 21:16 97.8 F 18 03/30/24 21:10 98.5 F 76 22 204/137 99 03/30/24 21:00 72 18 204/137 100 03/30/24 20:28 83 18 236/149 98 03/30/24 18:44 93 18 233/151 97 03/30/24 16:25 98.4 F 97 18 236/147 99 Intake and Output 03/30/24 03/31/24 03/31/24 22:59 06:59 14:59 Intake Total 57.083 1071.951 369.0 Output Total 200 0 Balance 57.083 871.951 369.0 Intake: IV 75 Sodium Chloride 0.9% 1, 75 000 ml @ 75 mls/hr IV . [id number] YOU[facility] Rx#:[id number] Intake, IV Titration 57.083 356.951 169.0 Amount Clevidipine Butyrate 25 214.034 169.0 mg In Empty Bag 1 bag @ 1 MG/HR 2 mls/hr IV .Q24H [facility] Rx#:[id number] niCARdipine 20 mg In 57.083 142.917 Sodium Chloride 0.9% 192 ml @ 5 MG/HR 50 mls/hr IV .Q4H [facility] Rx#:[id number] Oral 400 200 Tube Feeding 240 Output: Urine 200 0 Other: # Voids 1 Weight 93.44 kg 100.3 kg Patient is awake, comfortable. Alert and oriented x3 Lungs are clear CVS S1 and S2, systolic murmur is heard. Abdomen is soft. No edema noted. LOW PRESSURE FIRER exam grossly intact. No asterixis noted Results - Lab Results Most recent lab results Calcium 9.0 mg/dL (8.4-10.2) 03/31/24 00:29 Phosphorus 3.5 mg/dL (2.5-4.5) 03/31/24 00:29 Magnesium 2.1 mg/dL (1.6-2.3) 03/31/24 00:29 03/31/24 00:29 03/31/24 00:29 Assessment and Plan Assessment: 1. Chronic Kidney disease, stage 5 secondary to uncontrolled hypertension. Planning to start with PD. Patient is reluctant to start OVERLOCK WAISTLINE JOINER this admission unless emergently needed. Over all feeling better. If renal function remains stable we can wait on starting dialysis and patient will follow up as out patient with his school traffic guard. Check USS kidneys. 2. Hypertensive emergency associated with noncompliance and advanced renal failure. Currently on Cleviprex drip. Resume oral meds. Continue with diuretics. 3. Anion gap metabolic acidosis associated with advanced renal failure, currently improved 4. Hypokalemia secondary to diuretics 5. CKD mineral bone disorder. Patient was maintained on calcitriol previously. He will need phosphate binders and calcitriol based on PTH. Serum calcium was 9.4. Phosphorus is 3.5. No need for phosphate binders. Plan: Resume nifedipine and add Coreg. Continue with IV Lasix Add sodium bicarb Replace potassium Check ultrasound of the kidneys Check PTH Reevaluate in a.m. for need for renal replacement therapy. No need for urgent dialysis today. Thank you for the consultation. We will continue to follow the patient with you during his hospitalization.
--- NOTE | 2024-03-31 13:02 | CONS ---
CONSULTATION CHIEF COMPLAINT: Hypertensive emergency. HISTORY OF PRESENT ILLNESS: This is a 53-year-old gentleman with history of hypertension, who has not been taking his medications regularly, who presented to [facility] with symptoms of dizziness and headache of 4 to 5 days duration. He has chronic uncontrolled hypertension and chronic renal failure. The patient has unsteady gait and apparently had 2 falls. On his initial presentation, the blood pressure was 230/150. He is being treated with intravenous medications with improvement in his blood pressure and oral medications have been restarted. At the time of my evaluation, his symptoms have improved and his blood pressure is better controlled. PAST MEDICAL HISTORY: Significant for hypertension. MEDICATIONS: He was not taking any. ALLERGIES: None. FAMILY HISTORY: Negative for premature coronary artery disease. SOCIAL HISTORY: Negative for current smoking, EtOH abuse, or drug abuse. REVIEW OF SYSTEMS: 14 out of 14 review of systems has been performed. Pertinents are as documented. OBJECTIVE: VITAL SIGNS: Heart rate is 96 beats per minute, blood pressure is 149/102, respiratory rate is 18. CHEST: Reveals good air entry bilaterally. HEART: Reveals first and second heart sounds. An S4 is heard. ABDOMEN: Soft. EXTREMITIES: Did not reveal any edema. Peripheral pulses are felt. LABORATORY DATA: Labs show that the hemoglobin is 11.2, platelet count is 147, potassium is 3.4, BUN is 48, creatinine is 7.9. Troponin is elevated at 0.03, 0.03, and 0.04. ASSESSMENT: 1. Hypertensive emergency. 2. Acute renal failure. 3. Elevated troponin secondary to severe uncontrolled hypertension and renal failure. PLAN: I will gradually increase his oral medications for optimal blood pressure control and I will check an echocardiogram on him. Prognosis guarded. MMODL / IJN: [id number] /
[2024-03-31] MEDS: FUROSEMIDE 10 MG/ML 10 ML VIAL IV SCH (20:31)
[2024-03-31] MEDS: HEPARIN SODIUM,PORCINE 5,000 UNIT/ML 1 ML VIAL SQ SCH (23:07)
[2024-04-01 03:06] LABS: Anisocytosis Slight; Basophils % (A) 0 %; Eosinophils # (A) 0.2 k/uL (0-0.7); Eosinophils % (A) 2 %; HCT 32.5 % (39.0-53.0); HGB 10.6 gm/dL (13.0-17.5); Lymphocytes # (A) 0.8 k/uL (1.0-4.8); Lymphocytes % (A) 9 %; MCH 29.5 pg (25.0-35.0); MCHC 32.5 g/dL (31.0-37.0); MCV 90.7 fL (80.0-100.0); Mean Platelet Volume 8.1; Monocytes # (A) 0.7 k/uL (0-1.0); Monocytes % (A) 8 %; Neutrophils # (A) 7.1 k/uL (1.3-7.7); Neutrophils % (A) 80 %; Platelet Count 141 k/uL (150-450); RBC 3.59 m/uL (4.30-5.90); RDW 16.6 % (11.5-15.5)
[2024-04-01 03:20] LABS: African American GFR (CKD) 8 (>60 ml/min/1.73 sqM); Anion Gap 15 mmol/L; Blood Urea Nitrogen 50 mg/dL (9-20); Calcium 8.6 mg/dL (8.4-10.2); Carbon Dioxide 17 mmol/L (22-30); Chloride 105 mmol/L (98-107); Glucose 119 mg/dL (74-99); Non-African American GFR(CKD) 7 (>60 ml/min/1.73 sqM); Potassium 3.7 mmol/L (3.5-5.1); Sodium 137 mmol/L (137-145)
[2024-04-01 07:11] VITALS: RESP 13
--- NOTE | 2024-04-01 08:35 | PN ---
PROGRESS NOTE SUBJECTIVE: Heri is a 53-year-old gentleman who is admitted to this hospital with hypertensive emergency. The patient apparently had been refusing to take his medication this morning. He had an echocardiogram done and results are pending at this time. OBJECTIVE: VITAL SIGNS: Blood pressure is 152/83, respiratory rate is 13, heart rate is 90 beats per minute. CHEST: Reveals good air entry. HEART: Reveals first and second heart sounds. No gallop. EXTREMITIES: Did not reveal any edema. LABORATORY DATA: Show a hemoglobin of 10.6, potassium is 3.7, BUN is 50, creatinine is 7.88. ASSESSMENT: 1. Hypertensive emergency, acute. 2. Acute renal failure. PLAN: The patient is off IV medications. I will start him on hydralazine 50 three times a day. We will continue the Coreg and Procardia XL that he was on. MMJAVIER / JILL: [id number] /
--- NOTE | 2024-04-01 11:21 | P.PN ---
Subjective Progress Note Date: 04/01/24 Principal diagnosis: Hypertensive urgency/emergency. Patient is a 53-year-old -[place] male with past medical history significant for hypertension and renal disease. Patient is originally from [place]. History remarkable for high blood pressure, was previously on multiple blood pressure medications, but has not taken anything in the last year. He states he does have a primary care to provider and tractor operator laser leveling but was unable to recall their names. Presents emergency department yesterday afternoon with a chief complaint of severe diffuse headache, diffuse and nonlocalized, dizziness, and blurred vision. Symptoms have persisted over the last week. He was noted to be severely hypertensive in the emergency department with a blood pressure of 220 over 123 mmHg. On the emergency room, given labetalol 20 mg IV push once, clonidine patch, and then started on a Cardene infusion. Initial lab work concerning for renal failure. Patient states that he does have a kidney doctor. He was going to be started on peritoneal dialysis, but never followed up. CBC: WBC count 10.5, hemoglobin 11.2, hematocrit 35, platelets 147. CMP: Sodium 136, potassium 3.4, chloride 105, serum bicarb 17, anion gap 14, BUN 48, creatinine 7.59, glucose 160. LFTs unremarkable. Magnesium 2.1. Serial troponins elevated at 0.038, 0.038, and 0.046 in the setting of renal failure and severe hypertension. Patient is currently being evaluated in the intensive care unit. Cardene is currently infusing at 5 mg/h. He remains hypertensive with a current blood pressure of 192/113 mmHg. He is lying in bed, appears comfortable. He denies any chest pain, shortness of breath, orthopnea, palpitations, lower extremity edema. Chest x-ray does not show any acute cardiopulmonary process. Continues to have headache, but slightly improved. No mental status changes. Brain CT without contrast does not show any acute intracranial process. Denies recreational drug use other than marijuana. He states that he is leaving in the morning. Progress note dated April 01, 2024. 53-year-old black male who is seen today in the intensive care unit, room 255. He was admitted through the emergency department, with hypertensive emergency/urgency. The patient is on room air. He is not receiving any IV fluids. He received Cleviprex, titrated to reduce his blood pressure, to the normal range. Oral medications were resumed. The patient is not having any complaints. He denies any shortness of breath, chest pain, chest discomfort, etc. White count 9, hemoglobin 10.6, hematocrit 32.5, platelet count 141,000. Sodium 137, potassium 3.7, chlorides 105, CO2 17, BUN 50, creatinine 7.88. Objective - Vital Signs Vital signs: Vital Signs Temp 97.9 F 04/01/24 04:00 Pulse 90 04/01/24 07:00 Resp 13 04/01/24 07:00 BP 152/83 04/01/24 07:00 Pulse Ox 97 04/01/24 04:00 FiO2 Intake & Output 03/31/24 04/01/24 04/01/24 18:59 06:59 18:59 Intake Total 1221.466 433.734 Output Total 550 750 600 Balance 671.466 -316.266 -600 Weight 99.3 kg Intake: Intake, IV Titration 246.466 43.734 Amount Clevidipine Butyrate 25 246.466 43.734 mg In Empty Bag 1 bag @ 1 MG/HR 2 mls/hr IV .Q24H [facility] Rx#:[id number] Oral 975 390 Output: Urine 550 750 600 Other: # Voids 1 - Exam No acute distress, oriented 3. Currently on room air. HEENT examination is grossly unremarkable. Mucous membranes are moist. No oral lesions. Neck supple. Full range of motion. No adenopathy thyromegaly or neck vein distention. Cardiovascular examination reveals regular rhythm rate. S1-S2 normal. No S3 or S4. No discernible murmur noted. Lungs reveal clear breath sounds. Breath sounds are equal bilaterally. No adventitious lung sounds including wheezes rhonchi or crackles. Abdomen soft bowel sounds are heard. No masses or tenderness. Extremities are intact. No cyanosis clubbing or edema. Skin is without rash or lesion. Neurologic examination is brief but nonfocal. - Labs CBC & Chem 7: 04/01/24 02:37 04/01/24 02:37 Labs: Abnormal Lab Results - Last 24 Hours (Table) 03/31/24 04/01/24 04/01/24 Range/Units 12:51 02:37 02:37 RBC 3.59 L (4.30-5.90) m/uL Hgb 10.6 L (13.0-17.5) gm/dL Hct 32.5 L (39.0-53.0) % RDW 16.6 H (11.5-15.5) % Plt Count 141 L (150-450) k/uL Lymphocytes # 0.8 L (1.0-4.8) k/uL Carbon Dioxide 17 L (22-30) mmol/L BUN 50 H (9-20) mg/dL Creatinine 7.88 H* (0.66-1.25) mg/dL Glucose 119 H (74-99) mg/dL PTH Intact 772.0 H (14.0-72.0) pg/mL Assessment and Plan Assessment: Hypertensive emergency/urgency, likely secondary to medication noncompliance and renal disease. Acute kidney injury on top of chronic kidney disease. Anion gap metabolic acidosis. Vision changes/blurred vision, improved. Elevated troponins, possibly secondary to supply/demand mismatch in the setting of chronic kidney disease and hypertensive emergency. Medication noncompliance. Chronic marijuana use. Chronic tobacco dependence, smokes 1/2 pack/day. Plan: Plan dated April 01, 2024. The patient is seen today in the intensive care unit, room 255. He was admitted through the emergency department, with hypertensive urgency/emergency. The patient is doing much better. He has been weaned off of Cleviprex. He is currently on room air. No IV fluids. His blood pressure is much better controlled. Oral medications were restarted. The patient apparently was noncompliant with his normal blood pressure medications. The patient can be transferred out of the intensive care unit. All labs, x-rays, and medications are reviewed. Prognosis is guarded. Time with Patient: Less than 30
[2024-04-01 11:37] VITALS: PULSE 86; TEMP 97.7
--- NOTE | 2024-04-01 13:25 | CA ---
Transthoracic Echo Report Name: Heri Herndon Age: 53 Gender: M : 1970 Exam Date: 03/31/2024 11:45 Exam Location: [facility] Ht (in): 69 Wt (lb): 221 Ordering Physician: Vania Hernandez Attending/Referring Phys: [id number], David Dry Cleaning Machine Operator Selena White RDCS Procedure CPT: Indications: LV function, ESRD, elevated BP Cardiac Hx: Technical Quality: Good Contrast 1: Total Dose (mL): Contrast 2: Total Dose (mL): MEASUREMENTS (Male / Female) Normal Values 2D ECHO LV Diastolic Diameter PLAX 5.4 cm 4.2 - 5.9 / 3.9 - 5.3 cm LV Systolic Diameter PLAX 3.7 cm IVS Diastolic Thickness 1.4 cm 0.6 - 1.0 / 0.6 - 0.9 cm LVPW Diastolic Thickness 1.4 cm 0.6 - 1.0 / 0.6 - 0.9 cm LV Relative Wall Thickness 0.5 LVOT Diameter 2.5 cm LV Diastolic Volume MOD BP 170.3 cm??? 67 - 155 / 56 - 104 cm??? LV Systolic Volume MOD BP 75.7 cm??? 22 - 58 / 19 - 49 cm??? LV Ejection Fraction MOD BP 55.6 % >= 55 % LV Cardiac Index MOD BP 4054.2 cm???/min???m??? LV Diastolic Volume MOD 4C 165.5 cm??? LV Systolic Volume MOD 4C 72.7 cm??? LV Ejection Fraction MOD 4C 56.1 % LV Cardiac Index MOD 4C 3973.5 cm???/min???m??? LV Diastolic Length 4C 9.8 cm LV Systolic Length 4C 8.2 cm LV Diastolic Volume MOD 2C 166.1 cm??? LV Systolic Volume MOD 2C 74.4 cm??? LV Ejection Fraction MOD 2C 55.2 % LV Cardiac Index MOD 2C 3929.6 cm???/min???m??? LV Diastolic Length 2C 9.2 cm LV Systolic Length 2C 7.7 cm LA Volume 74.7 cm??? 18 - 58 / 22 - 52 cm??? LA Volume Index 33.3 cm???/m??? 16 - 28 cm???/m??? Ascending Aorta Diameter 4.2 cm DOPPLER AV Peak Velocity 197.4 cm/s AV Peak Gradient 15.6 mmHg AV Mean Velocity 134.1 cm/s AV Mean Gradient 8.3 mmHg AV Velocity Time Integral 30.3 cm LVOT Peak Velocity 134.1 cm/s LVOT Peak Gradient 7.2 mmHg LVOT Velocity Time Integral 22.6 cm LVOT Stroke Volume 106.9 cm??? LVOT Stroke Volume Index 49.6 ml/m??? LVOT Cardiac Index 4578.0 cm???/min???m??? AV Area Cont Eq vti 3.5 cm??? AV Area Cont Eq pk 3.2 cm??? MV Area PHT 3.1 cm??? Mitral E Point Velocity 69.5 cm/s Mitral A Point Velocity 95.0 cm/s Mitral E to A Ratio 0.7 MV Deceleration Time 244.0 ms PV Peak Velocity 132.7 cm/s PV Peak Gradient 7.0 mmHg FINDINGS Left Ventricle Left ventricular ejection fraction is estimated at 55 %. Moderately increased septal wall thickness. Mildly increased left ventricular diastolic volume. Moderately increased left ventricular systolic volume. Reduced global left ventricular systolic function. Right Ventricle Mild right ventricular dilatation with normal function. Unable to estimate the right ventricular systolic pressure. Right Atrium Normal right atrial size. Left Atrium Mildly increased left atrial volume. Mitral Valve Structurally normal mitral valve. No evidence for mitral valve prolapse. No mitral stenosis. Trace mitral regurgitation. Aortic Valve Trileaflet aortic valve. No aortic valve stenosis or regurgitation. Tricuspid Valve Structurally normal tricuspid valve. No tricuspid stenosis. Trace tricuspid regurgitation. Pulmonic Valve Structurally normal pulmonic valve. No pulmonic stenosis. No pulmonic regurgitation. Pericardium No pericardial effusion. Aorta Aortic annulus normal. Mildly enlarged ascending aorta. CONCLUSIONS Left ventricular ejection fraction 55% Moderate increased left ventricular wall thickness Trace mitral regurgitation Trace tricuspid regurgitation No pericardial effusion Previewed by: Dr. Andre Longo DO (Electronically Signed) Final Date: 31 March 2024 14:15
--- NOTE | 2024-04-01 14:26 | P.DS ---
Providers Date of admission: 03/30/24 19:09 Expected date of discharge: 04/01/24 Attending physician: Medhat Echols MD Consults: 03/30/24 19:08 Consult Physician Routine Consulting Provider: Elvia Purvis Consult Reason/Comments: htn Do you want consulting provider notified?: Yes 03/30/24 21:12 Consult Physician Urgent Consulting Provider: Enio Wright Consult Reason/Comments: htn emergency Do you want consulting provider notified?: Yes Consult Physician Urgent Consulting Provider: Ruben Lynn Consult Reason/Comments: CKD/ESRD Do you want consulting provider notified?: Yes Primary care physician: Stated None Hospital Course: Discharge Diagnosis: Hypertensive emergency End-stage renal disease High anion gap metabolic acidosis secondary to renal failure Type II NSTEMI, secondary to hypertensive emergency and CKD Normocytic anemia Hospital Course: Patient is a 53-year-old Black male with history of uncontrolled hypertension and chronic kidney disease comes to the ER with complaint of dizziness and headaches since 4 to 5 days. Patient states that he has been feeling dizzy constantly since Friday which is worse with changes in position. It has been associated with unsteady gait and had to 2 episodes fall. He denies any injury to the head. Denies any loss of consciousness. Patient has been also experiencing diffuse headache which is worse in the occipital area associated with blurry vision. Patient states that when he measured his blood pressure at home today his BP was more than approximately 230/150 which prompted him to come to the ER for further evaluation. Patient has previously been diagnosed with hypertension and was on 5-7 different types of antihypertensive medications. He has not been taking hypertensive medications for the past 1 year because he "did not feel the need to take it". Patient is also following a results technician at [facility] in [facility] for chronic kidney disease and according to the patient he was supposed to be having a peritoneal dialysis. Patient is unable to recall the name of the results technician. Patient denies history of CAD and CVA. Patient is not on any blood thinner. No recent travel. Patient denies shortness of breath, chest pain, abdominal pain, numbness or weakness or tingling in upper and lower extremities. Laboratory data: BUN 48, creatinine 7.59, troponin 0.038, 0.038, 0.046, potassium 3.4, Images: Chest x-ray interpreted independently shows no acute cardiopulmonary process Brain CT shows no acute intraparenchymal hemorrhage or mass effect. No acute intracranial process Vitals: BP 236/149 with MAP at 178, Tmax 98.4 Fahrenheit, heart rate 83, oxygen saturation 98% on room air Patient was admitted to the ICU for further management of his hypertensive emergency. Cardiology, pulmonology, nephrology were on the case. While admitted he was placed on IV Cleviprex and eventually transition to oral antihypertensive medications. Renal artery duplex showed no signs of stenosis. Echocardiogram showed left ventricular ejection fraction of 55%, moderate increased left ventricular wall thickness. Patient is reluctant for dialysis, but per nephrology we will try to do dialysis outpatient. Blood pressure has stabilized, and patient does not report of any headache, vision changes, or chest pain. He is being discharged with oral antihypertensives and was encouraged on the importance of taking them. He is to follow-up with his PCP, results technician. He is being discharged home. Vital signs reviewed and stable. Physical examination: Vital signs reviewed General: non toxic, no distress, appears at stated age, normal weight Derm: no unusual rashes/lesions, warm Head: atraumatic, normocephalic, symmetric Eyes: EOMI, anicteric sclera, pupils equal round reactive to light ENT: Nose and ears atraumatic Neck: No cervical lymphadenopathy, trachea midline, supple Mouth: no lip lesion, mucus membranes moist Cardiovascular: S1S2 reg, no murmur, positive dorsalis pedis pulse bilateral, no edema Lungs: CTA bilateral, no rhonchi, no rales, no accessory muscle use Abdominal: soft, nontender to palpation, no guarding Ext: muscle strength 5 out of 5 in all 4 extremities grossly, no gross muscle atrophy Neuro: CN II-XI grossly intact, no gross focal neuro deficits Psych: Alert, oriented to person, place, and time A total of greater than 30 minutes of time were spent preparing this complex discharge summary. Patient was discharge on April 01, 2024 at 1:06 PM. Matt Arora MD PGY-1 IM Dictation was produced using [employer] dictation software. please excuse any grammatical, word or spelling errors. I have seen and evaluated the patient today. Discussed with the resident and agree with the residents finding and plan as documented in the resident's note. Changes highlighted in blue font. Patient Condition at Discharge: Stable Plan - Discharge Summary New Discharge Prescriptions: New Sodium Bicarbonate Tab 650 mg PO BID #120 tab hydrALAZINE HCL [Apresoline] 50 mg PO TID #120 tab carvediloL [Coreg*] 12.5 mg PO BID-W/MEALS #120 tab Furosemide [Lasix] 60 mg PO DAILY #90 tab NIFEdipine XL [Procardia XL] 60 mg PO BID #120 tab Discharge Medication List Furosemide [Lasix] 60 mg PO DAILY #90 tab 04/01/24 [Rx] NIFEdipine XL [Procardia XL] 60 mg PO BID #120 tab 04/01/24 [Rx] Sodium Bicarbonate Tab 650 mg PO BID #120 tab 04/01/24 [Rx] carvediloL [Coreg*] 12.5 mg PO BID-W/MEALS #120 tab 04/01/24 [Rx] hydrALAZINE HCL [Apresoline] 50 mg PO TID #120 tab 04/01/24 [Rx] Follow up Appointment(s)/Referral(s): None,Stated [Primary Care Provider] - 1-2 days Patient Instructions/Handouts: Dialysis Diet (DC), Hypertensive Crisis (DC), End Stage Kidney Disease (DC) Activity/Diet/Wound Care/Special Instructions: Please see your PCP and results technician in [place]. Discharge Disposition: HOME SELF-CARE
[2024-04-01 14:27] VITALS: BP 166/84
[2024-04-01] MEDS ORDERED: hydrALAZINE HCL 50 MG TAB PO SCH (16:00)
--- NOTE | 2024-04-01 16:33 | P.PN ---
Subjective Patient is seen for follow-up for chronic kidney disease stage V and uncontrolled hypertension with hypertensive emergency. Patient is off of Cleviprex drip. Blood pressure is better controlled. Maintained on Procardia carvedilol and Lasix. He has been started on hydralazine as well today. Systolic blood pressure around 150 mmHg. No significant complaints. Serum creatinine about the same at 7.8 mg/dL. Discussed with patient regarding renal replacement therapy and he states that he would like to wait and follow-up with his sales enablement specialist as outpatient. No urgent indication for renal replacement therapy today. Tolerating oral intake with no complaints of nausea or vomiting. Objective - Vital Signs Vital signs: Vital Signs Temp 97.7 F 04/01/24 08:00 Pulse 86 04/01/24 11:30 Resp 13 04/01/24 11:30 BP 166/84 04/01/24 12:00 Pulse Ox 97 04/01/24 04:00 FiO2 Intake & Output 03/31/24 04/01/24 04/01/24 18:59 06:59 18:59 Intake Total 1221.466 433.734 0 Output Total 489 382 7549 Balance 671.466 -316.266 -1200 Weight 99.3 kg Intake: Intake, IV Titration 246.466 43.734 Amount Clevidipine Butyrate 25 246.466 43.734 mg In Empty Bag 1 bag @ 1 MG/HR 2 mls/hr IV .Q24H [facility] Rx#:[id number] Oral 975 390 0 Output: Urine 484 122 5779 Other: # Voids 1 - Exam Patient is awake, comfortable, no acute distress. Tattoos on the face Examination of the heart S1 and S2 Examination of the lungs bilateral breath sounds are heard Abdomen is soft nontender Examination of lower extremities shows no significant edema DUPLICATING MACHINE OPERATOR exam grossly intact - Labs CBC & Chem 7: 04/01/24 02:37 04/01/24 02:37 Labs: Abnormal Lab Results - Last 24 Hours (Table) 03/31/24 04/01/24 04/01/24 Range/Units 12:51 02:37 02:37 RBC 3.59 L (4.30-5.90) m/uL Hgb 10.6 L (13.0-17.5) gm/dL Hct 32.5 L (39.0-53.0) % RDW 16.6 H (11.5-15.5) % Plt Count 141 L (150-450) k/uL Lymphocytes # 0.8 L (1.0-4.8) k/uL Carbon Dioxide 17 L (22-30) mmol/L BUN 50 H (9-20) mg/dL Creatinine 7.88 H* (0.66-1.25) mg/dL Glucose 119 H (74-99) mg/dL PTH Intact 772.0 H (14.0-72.0) pg/mL Assessment and Plan Assessment: 1. Chronic Kidney disease, stage 5 secondary to uncontrolled hypertension. Planning to start with PD. Patient is reluctant to start B[employer]ER this admission unless emergently needed. Over all feeling better. If renal function remains stable we can wait on starting dialysis and patient will follow up as out patient with his sales enablement specialist. No obstruction noted on ultrasound. 2. Hypertensive emergency associated with noncompliance and advanced renal failure. Status post Cleviprex drip. Maintained on Procardia and Coreg. Continue with diuretics. 3. Anion gap metabolic acidosis associated with advanced renal failure, currently improved 4. Hypokalemia secondary to diuretics 5. CKD mineral bone disorder. Patient was maintained on calcitriol previously. He will need phosphate binders and calcitriol based on PTH. Serum calcium was 9.4. Phosphorus is 3.5. No need for phosphate binders. Plan: Patient can be discharged from nephrology standpoint. Advised to follow-up with his sales enablement specialist within 1 week. Continue with Coreg and Procardia. Hydralazine added today. Continue with diuretics as well.
== END 2024-04-01 17:01 | disposition home or self-care (01) | DRG 280 ==
LOC: EC 15:46 → 3SCARD 19:09 → 2SICU 21:49
PROVIDERS: ADMIT Internal Medicine; ATTEND Internal Medicine
DX: I16.1 Hypertensive emergency (principal); I67.83 Posterior reversible encephalopathy syndrome; I21.A1 Myocardial infarction type 2; N18.6 End stage renal disease; E87.20 Acidosis, unspecified; N17.9 Acute kidney failure, unspecified; D63.1 Anemia in chronic kidney disease; I12.0 Hypertensive chronic kidney disease with stage 5 chronic kidney disease or end stage renal disease; Z99.2 Dependence on renal dialysis; Z91.158 Patient's noncompliance with renal dialysis for other reason; F12.90 Cannabis use, unspecified, uncomplicated; F17.210 Nicotine dependence, cigarettes, uncomplicated; E87.6 Hypokalemia; M89.8X8 Other specified disorders of bone, other site; T50.2X5A Adverse effect of carbonic-anhydrase inhibitors, benzothiadiazides and other diuretics, initial encounter; W18.30XA Fall on same level, unspecified, initial encounter; Z79.899 Other long term (current) drug therapy; Z82.49 Family history of ischemic heart disease and other diseases of the circulatory system; Z91.148 Patient's other noncompliance with medication regimen for other reason; Z91.199 Patient's noncompliance with other medical treatment and regimen due to unspecified reason
CPT/HCPCS: 36415; 70450; 71046; 80048; 80053; 83605; 83735; 83970; 84100; 84484; 85025; 85610; 85730; 93005; 93306; 93975; 96361; 96365; 96375; 99291